=== PATIENT | male | born 1995 | race Caucasian/White ===

== ENCOUNTER 2017-09-29 09:42 | Emergency (ER) | payer BC ==
[2017-09-29] MEDS: FLUORESCEIN STRIP RIGHT EYE (10:40)
[2017-09-29] MEDS: TETRACAINE 0.5% 4 ML OPH RIGHT EYE (10:40)
== END 2017-09-29 11:05 | disposition home or self-care (01) ==
LOC: FTE 09:42
DX: H10.9 Unspecified conjunctivitis (principal)
CPT/HCPCS: 99284